=== PATIENT | female | born 1975 | race Caucasian/White ===

== ENCOUNTER 2018-05-23 10:39 | Emergency (ER) | payer OTHER ==
[~2018-05-23] VITALS: Ht 167.6 cm; Wt 124.7 kg
--- NOTE | 2018-05-23 12:24 | Diagnostic Imaging Report ---
EXAMINATION: CXR 2 VIEW - HOPD INDICATION: Chest congestion with cough. Yellow phlegm. COMPARISON: None FINDINGS: TUBES and LINES: None. LUNGS: Lungs are well inflated. Bilateral peribronchial cuffing. Questionable right middle lobe pneumonia seen on lateral x-ray. PLEURA: No pleural effusion or pneumothorax. HEART AND MEDIASTINUM: The cardiomediastinal silhouette is unremarkable. BONES AND SOFT TISSUES: Thoracic dextroscoliosis. No acute osseous lesion. Soft tissues are unremarkable. UPPER ABDOMEN: No free air under the diaphragm. There are cholecystectomy clips. IMPRESSION: 1. Bilateral peribronchial cuffing, which could represent viral etiology or reactive airway disease. 2. Questionable right middle lobe pneumonia, seen on lateral x-ray. Signed by: Dr. Yimi Tyler M.D. on 05/23/2018 12:20 PM
[2018-05-23 12:49] VITALS: BP 142/70
== END 2018-05-23 12:50 | disposition home or self-care (01) ==
LOC: FSED 10:39
DX: J45.41 Moderate persistent asthma with (acute) exacerbation (principal); J15.9 Unspecified bacterial pneumonia; E23.7 Disorder of pituitary gland, unspecified; F17.210 Nicotine dependence, cigarettes, uncomplicated
CPT/HCPCS: 71046; 99283

== ENCOUNTER 2022-07-01 18:32 | Emergency (ER) | payer OTHER ==
[~2022-07-01] VITALS: Ht 167.6 cm; Wt 124.7 kg
[2022-07-01] MEDS ORDERED: TIZANIDINE HCL4 M1 PO (19:09)
[2022-07-01] MEDS ORDERED: KETOROLAC TROME10 MG PO (19:09)
[2022-07-01] MEDS ORDERED: DEXAMETHASONE SOD PHOS 10 MG/1 ML VIAL IM ONE (19:15)
[2022-07-01] MEDS ORDERED: HYDROCODONE/APAP 7.5MG-325MG 1 EA TAB PO ONE (19:15)
== END 2022-07-01 19:16 | disposition home or self-care (01) ==
LOC: ER 18:36
DX: S39.012A Strain of muscle, fascia and tendon of lower back, initial encounter (principal); X50.0XXA Overexertion from strenuous movement or load, initial encounter; Y92.89 Other specified places as the place of occurrence of the external cause; E78.5 Hyperlipidemia, unspecified; J44.9 Chronic obstructive pulmonary disease, unspecified; K21.9 Gastro-esophageal reflux disease without esophagitis; J45.909 Unspecified asthma, uncomplicated; F17.210 Nicotine dependence, cigarettes, uncomplicated
CPT/HCPCS: 99282; J1100